=== PATIENT | male | born 1960 ===

== ENCOUNTER 2017-08-01 19:00 | Emergency (ER) | payer MEDICARE, MEDICAID ==
[2017-08-01 19:12] VITALS: RESP 18
--- NOTE | 2017-08-01 19:49 | C.PDOC ---
History Of Present Illness Patient is a 57 y/o male who presents to the ED with complaints of a headache, nausea, and photophobia for the last few days. Patient states the pain is more towards the occipital region of head, and notes experiencing some back pain. No other physical complaints at this time. Time Seen by Provider: 08/01/17 19:47 Chief Complaint (Nursing): Headache History Per: Patient History/Exam Limitations: no limitations Onset/Duration Of Symptoms: Days Current Symptoms Are (Timing): Still Present Associated Symptoms: Photophobia, Nausea Recent travel outside of the [place]: No Past Medical History Reviewed: Historical Data, Nursing Documentation, Vital Signs Vital Signs: Last Vital Signs Temp 97.8 F 08/01/17 21:05 Pulse 65 08/01/17 21:05 Resp 18 08/01/17 21:05 BP 147/81 08/01/17 21:05 Pulse Ox 97 08/01/17 22:23 - Medical History PMH: Back Problems, Depression, Gastritis, HTN, Migraine, Pancreatitis Denies: Chronic Kidney Disease - [facility] Procedures ANESTH INJECT-SPIN CANAL (08/28/14) ESOPHAGOGASTRODUODENOSCOPY [EGD] W/CLOSED BIOPSY (05/27/14) INJECT STEROID (08/28/14) INJECT/INFUSE NEC (07/04/15) LUMBOSAC SPINE X-RAY NEC (08/28/14) SPINAL CANAL INJECT NEC (08/28/14) VACCINATION NEC (04/11/14) Family History: States: Unknown Family Hx - Social History Hx Tobacco Use: Yes Hx Alcohol Use: No (stopped) Hx Substance Use: No - Immunization History Hx Tetanus Toxoid Vaccination: No Hx Influenza Vaccination: Yes Hx Pneumococcal Vaccination: No Review Of Systems Constitutional: Negative for: Fever, Chills Eyes: Negative for: Pain, Vision Change Cardiovascular: Negative for: Chest Pain Respiratory: Negative for: Shortness of Breath Gastrointestinal: Positive for: Nausea Musculoskeletal: Positive for: Back Pain (unassociated) Neurological: Positive for: Headache (occipital; 4/10 pain). Negative for: Change in Speech Physical Exam - Physical Exam Appears: Well, Non-toxic Skin: Warm, Dry Head: Normacephalic Eye(s): bilateral: Normal Inspection Oral Mucosa: Moist Neck: Trachea Midline, Supple Chest: Symmetrical Cardiovascular: Rhythm Regular, No Murmur Respiratory: No Rales, No Rhonchi, No Wheezing Gastrointestinal/Abdominal: Soft, No Tenderness Back: Normal Inspection Extremity: Normal ROM Extremity: Bilateral: Atraumatic Pulses: Left Dorsalis Pedis: Normal, Right Dorsalis Pedis: Normal Neurological/Psych: Oriented x3, Normal Speech, Normal Cognition Gait: Steady ED Course And Treatment - Laboratory Results Result Diagrams: 08/01/17 20:15 08/01/17 20:15 O2 Sat by Pulse Oximetry: 97 Pulse Ox Interpretation: Normal - CT Scan/US CT Head Other Rad Studies (CT/US): Interpreted By Me, Read By Radiologist CT/US Interpretation: No acute intracranial hemorrhage, or suspicious mass effect. Progress Note: CT Head and blood work ordered; Solu-medrol and zofran administered. Reevaluation Time: 22:38 Reassessment Condition: Improved Disposition Counseled Patient/Family Regarding: Studies Performed, Diagnosis, Need For Followup - Disposition Referrals: [facility] [Outside] Disposition: HOME/ ROUTINE Disposition Time: 19:49 Condition: FAIR Prescriptions: Ondansetron ODT [Zofran ODT] 1 odt PO BID PRN #6 odt PRN Reason: Nausea/Vomiting Instructions: Migraine Headache (ED) Forms: [facility] ([place]) - Clinical Impression Clinical Impression: Migraine, Headache - Scribe Statement The provider has reviewed the documentation as recorded by the Scribe Gabriella Lr All medical record entries made by the Scribe were at my direction and personally dictated by me. I have reviewed the chart and agree that the record accurately reflects my personal performance of the history, physical exam, medical decision making, and the department course for this patient. I have also personally directed, reviewed, and agree with the discharge instructions and disposition.
[2017-08-01 20:18] LABS: BASO % 0.4 % (0.0-2.0); EOS % 0.3 % (0.0-4.0); LYMPH # 2.3 K/uL (1.0-4.3); LYMPH % 21.6 % (20.0-40.0); MEAN CELL VOLUME 90.3 fL (80.0-94.0); MEAN CORPUSCULAR HEMOGLOBIN 31.8 pg (27.0-31.0); MEAN CORPUSCULAR HGB CONC 35.2 g/dL (33.0-37.0); MEAN PLATELET VOLUME 7.8 fL (7.2-11.7); MONO # 0.5 K/uL (0.0-0.8); MONO % 4.4 % (0.0-10.0); RED CELL DISTRIBUTION WIDTH 13.5 % (11.5-14.5); WHITE BLOOD COUNT 10.7 K/uL (4.8-10.8)
[2017-08-01 20:27] LABS: CHLORIDE 97 mmol/L (98-107); POTASSIUM 4.4 mmol/L (3.6-5.2); SODIUM 135 mmol/L (132-148)
[2017-08-01 20:30] LABS: ALB/GLOB RATIO 1.4 (1.0-2.1); ALKALINE PHOSPHATASE 83 U/L (38-126); ALT/SGPT 46 U/L (21-72); AST/SGOT 18 U/L (17-59); BILIRUBIN,TOTAL 0.6 mg/dL (0.2-1.3); BLOOD UREA NITROGEN 12 mg/dL (9-20); CALCIUM 8.8 mg/dl (8.6-10.4); CARBON DIOXIDE 25 mmol/L (22-30); GFR AFRICAN-AMERICAN > 60; GLUCOSE,RANDOM 134 mg/dL (75-110); TOTAL PROTEIN 7.9 g/dL (6.3-8.3)
[2017-08-01 20:31] LABS: ALCOHOL SERUM < 10 mg/dl (0-10)
[2017-08-01 20:46] LABS: RBC URINE < 1 /hpf (0-3); URINE BILIRUBIN NEGATIVE (NEGATIVE); URINE BLOOD NEGATIVE (NEGATIVE); URINE COLOR Yellow (YELLOW); URINE GLUCOSE (UA) NORMAL (Normal); URINE KETONE NEGATIVE (NEGATIVE); URINE LEUKOCYTE ESTERASE NEG Leu/uL (Negative); URINE PROTEIN NEGATIVE (NEGATIVE); URINE UROBILINOGEN NORMAL mg/dL (0.2-1.0); WBC URINE < 1 /hpf (0-5)
--- NOTE | 2017-08-01 21:19 | CT ---
EXAM: CT Head Without Intravenous Contrast CLINICAL HISTORY: 57 years old, male; Pain; Headache; Headache not specified TECHNIQUE: Axial computed tomography images of the head/brain without intravenous contrast. All CT scans at this facility use one or more dose reduction techniques, viz.: automated exposure control; ma/kV adjustment per patient size (including targeted exams where dose is matched to indication; i.e. head); or iterative reconstruction technique. COMPARISON: No relevant prior studies available. FINDINGS: Brain: No acute intracranial hemorrhage. No significant white matter disease. No edema. Ventricles: No significant ventriculomegaly. Bones: No acute displaced fracture. Sinuses: Unremarkable as visualized. No acute sinusitis. Mastoid air cells: Unremarkable as visualized. No mastoid effusion. IMPRESSION: No acute intracranial hemorrhage, or suspicious mass effect.
[2017-08-01 23:10] VITALS: BP 154/77; PULSE 62; TEMP 98.2; O2SAT 96
--- NOTE | 2017-08-02 12:34 | CARD ---
APPROVED REPORT EKG Measurement Heart [id number] CT [id number] <Conclusion> Normal sinus rhythm Normal ECG
== END 2017-08-01 23:11 | disposition home or self-care (01) ==
LOC: C.ER 19:00
DX: G43.909 Migraine, unspecified, not intractable, without status migrainosus (principal); I10 Essential (primary) hypertension; F17.210 Nicotine dependence, cigarettes, uncomplicated
CPT/HCPCS: 70450; 80053; 81001; 85025; 93005; 96374; 96375; 99285; G0480; J2270; J2405; J2930

== ENCOUNTER 2018-08-13 07:20 | Day surgery (SDC) | payer MEDICARE, MEDICAID ==
[2018-08-13] MEDS ORDERED: Propofol 10 mg/ml Inj (20 ML) ONE (08:54)
[2018-08-13] MEDS ORDERED: Midazolam 2 MG/2 ML VIAL ONE (08:54)
--- NOTE | 2018-08-13 09:07 | CP.SDSHP ---
Same Day Surgery H & P - History Proposed Procedure: egd. colonoscopy Pre-Op Diagnosis: epigastric pain. heartburn. h/o colon polyps - Previous Medical/Surgical History Cardiac: Hypertension, Other (hypercholesterolemia, DJD, Gerd, Gastritis) Endocrine/Metabolic: Diabetes Neuro: Backaches Misc: Other (Fatty liver, colon polyps, DJD) - Allergies Allergies: Allergies No Known Allergies Allergy (Verified 08/13/18 07:54) - Physical Exam Vital Signs: Vital Signs 08/13/18 08:00 Temperature 98.4 F Pulse Rate 66 Respiratory 18 Rate Blood Pressure 120/83 O2 Sat by Pulse 98 Oximetry Mental Status: Alert & Oriented x3 Neuro: WNL Heart: WNL Lungs: WNL GI: WNL - Impression Impression: heartburn. epigastric pain. h/o colon polyps (2011) Pt. Evaluated Today:Candidate for Anesthesia & Procedure: Yes - Date & Time Date: 08/13/18 Time: 09:07 Short Stay Discharge - Short Stay Discharge Admitting Diagnosis/Reason for Visit: EPIGASTRIC PAIN Disposition: HOME/ ROUTINE Referrals: Wellington Contreras MD [Primary Care Provider] -
[2018-08-13] MEDS ORDERED: Lactated Ringer's 500 ML IV ONE (09:12)
[2018-08-13 12:02] VITALS: TEMP 96.9
[2018-08-13 12:05] VITALS: BP 130/80; PULSE 57; RESP 12; O2SAT 99
== END 2018-08-13 12:15 | disposition home or self-care (01) ==
LOC: C.ENDO 07:20
PROVIDERS: ATTEND Internal Medicine Gastroenterology
DX: K62.1 Rectal polyp (principal); D12.7 Benign neoplasm of rectosigmoid junction; Z86.010 Personal history of colon polyps; D12.3 Benign neoplasm of transverse colon; K44.9 Diaphragmatic hernia without obstruction or gangrene; K21.0 Gastro-esophageal reflux disease with esophagitis; E11.9 Type 2 diabetes mellitus without complications; E78.00 Pure hypercholesterolemia, unspecified; I10 Essential (primary) hypertension; K29.70 Gastritis, unspecified, without bleeding
CPT/HCPCS: 43239; 45385; 82948; 88305; 88312; 88342; J2001; J2250; J2704; J3010; J7120